=== PATIENT | female | born 1965 | race Caucasian/White ===

== ENCOUNTER 2017-06-28 12:41 | Outpatient (CLI) | payer OTHER ==
--- NOTE | 2017-06-28 16:38 | MMO ---
BILATERAL SCREENING MAMMOGRAMS: DATE: 06/28/17 No prior comparison. Baseline interpretation. This patient's mammogram was interpreted with the assistance of computer-aided detection. FINDINGS: There are scattered fibroglandular elements. No evidence of a dominant mass, suspicious clustering o f microcalcification, or architectural distortion. IMPRESSION: BIRADS 1: Negative Annual screening mammography is recommended. POS: MALIK
== END 2017-06-28 12:42 | disposition home or self-care (01) ==
LOC: MAMMO 12:41
PROVIDERS: ATTEND Family Medicine
DX: Z12.31 Encounter for screening mammogram for malignant neoplasm of breast (principal)
CPT/HCPCS: 77067; G0202

== ENCOUNTER 2017-09-26 12:10 | Outpatient (CLI) | payer OTHER ==
--- NOTE | 2017-09-26 14:02 | ULT ---
PELVIC ULTRASOUND: Technique: Transabdominal and endovaginal ultrasound of pelvis performed. History: Left pelvic pain. FINDINGS: Uterus has a normal appearance. Uterine measurements recorded at 4.5 x 3.4 x 4.2 cm. The endometrial stripe is within normal range measured at approximately 4 mm. The patient is post right oophorectomy according to history. The left ovary is identified and appears unremarkable. Color doppler with spectral analysis shows blo od flow to the left ovary. No free fluid is seen. IMPRESSION: Unremarkable pelvic ultrasound. There is a history of right oophorectomy. POS: OFF
== END 2017-09-26 12:11 | disposition home or self-care (01) ==
LOC: ULT 12:10
PROVIDERS: ATTEND Family Medicine
DX: R10.2 Pelvic and perineal pain (principal); Z90.722 Acquired absence of ovaries, bilateral
CPT/HCPCS: 76856